=== PATIENT | female | born 1950 | race Caucasian/White ===

== ENCOUNTER 2019-01-10 19:40 | Emergency (ER) | payer OTHER ==
[~2019-01-10] VITALS: Ht 154.9 cm; Wt 50.9 kg
[2019-01-10 19:48] VITALS: Ht 154.9 cm; Wt 50.9 kg
--- NOTE | 2019-01-10 22:22 | ERD ---
ER Documentation Chief Complaint Chief Complaint BIB RA90 for hypoglycemia HPI 68-year-old female brought in by ambulance after she was noted to be hypoglycemic in the field with a blood sugar in the 20s. Patient states that her insulin was recently changed a few weeks ago. She was told to use long- acting insulin in the morning and another type of insulin which she does not know the name of, in the afternoon and in the evening. However she has only been using it in the afternoon as she feels that her blood sugar goes too low. Today she injected her insulin without checking her blood sugar as she was not at home. She also felt hungry but did not eat. Currently she feels much better after she was given a dose of D50 in the field. She was also fed here by the nurses. She denies any other symptoms. ROS All systems reviewed and are negative except as per history of present illness. Allergies Allergies: Coded Allergies: No Known Allergy (Unverified , 01/10/19) PMhx/Soc Medical and Surgical Hx: pt denies Surgical Hx Anesthesia Reaction: No Hx Neurological Disorder: No Hx Respiratory Disorders: No Hx Cardiac Disorders: No Hx Psychiatric Problems: No Hx Miscellaneous Medical Probl: Yes (DM) Hx Alcohol Use: No Hx Substance Use: No Hx Tobacco Use: No Smoking Status: Never smoker FmHx Family History: No coronary disease Physical Exam Vitals Vital Signs Date Temp Pulse Resp B/P (MAP) Pulse Ox O2 O2 Flow FiO2 Time Delivery Rate 01/10/19 69 18 159/70 99 Room Air 22:31 (99) 01/10/19 97.6 104 18 152/97 100 19:48 (115) Physical Exam Const: No acute distress Head: Atraumatic Eyes: Normal Conjunctiva, PERRLA, EOMI ENT: Normal External Ears, Nose and Mouth. Neck: Full range of motion. No meningismus. Resp: Clear to auscultation bilaterally Cardio: Regular rate and rhythm, no murmurs Abd: Soft, non tender, non distended. Normal bowel sounds Skin: No petechiae or rashes Back: No midline or flank tenderness Ext: No cyanosis, or edema Neur: Awake and alert, oriented x3, no facial asymmetry, moving all extremities spontaneously. Normal speech. Psych: Normal Mood and Affect Result Diagram: 01/10/19195101/10/191951 Results 24 hrs Laboratory Tests Test 01/10/19 19:47 01/10/19 19:52 01/10/19 21:24 01/10/19 22:09 Bedside Glucose 200 mg/dL 112 mg/dL 118 mg/dL White Blood Count 9.8 10^3/ul Red Blood Count 3.61 10^6/ul Hemoglobin 10.7 g/dl Hematocrit 33.7 % Mean Corpuscular 93.4 fl Volume Mean Corpuscular 29.6 pg Hemoglobin Mean Corpuscular 31.8 g/dl Hemoglobin Concent Red Cell Distribution 11.8 % Width Platelet Count 316 10^3/UL Mean Platelet Volume 10.2 fl Immature Granulocytes 0.400 % % Neutrophils % 68.1 % Lymphocytes % 21.6 % Monocytes % 7.1 % Eosinophils % 1.9 % Basophils % 0.9 % Nucleated Red Blood 0.0 /100WBC Cells % Immature Granulocytes 0.040 10^3/ul # Neutrophils # 6.7 10^3/ul Lymphocytes # 2.1 10^3/ul Monocytes # 0.7 10^3/ul Eosinophils # 0.2 10^3/ul Basophils # 0.1 10^3/ul Nucleated Red Blood 0.0 10^3/ul Cells # Sodium Level 138 mmol/L Potassium Level 4.3 mmol/L Chloride Level 100 mmol/L Carbon Dioxide Level 24 mmol/L Anion Gap 14 Blood Urea Nitrogen 27 mg/dl Creatinine 1.53 mg/dl Est Glomerular Filtrat 34 mL/min Rate mL/min Glucose Level 152 mg/dl Calcium Level 9.7 mg/dl Procedures/MDM EMERGENT LABS AND DIAGNOSTIC STUDIES: Lab Results above were reviewed and interpreted by me. CBC: Mild anemia, no evidence of infection CMP: Elevated BUN and creatinine, possibly chronic versus secondary to dehydration. No evidence of clinically significant electrolyte abnormality, acidosis, hypoglycemia Initial Nursing notes reviewed. Previous Medical Records requested via the Electronic Health Record. EMERGENCY DEPARTMENT COURSE / MEDICAL DECISION MAKING: Patient is presenting after having a hypoglycemic episode, now with high blood sugar after she was given D50 in the field. Vitals are unremarkable upon arrival. She was observed in the ER for several hours and given a meal. Her blood sugar remained stable. I explained to the patient the importance of eating when she uses her insulin and also knowing her blood sugar when she is injecting her insulin. Recommended follow-up with her primary care physician in 2 days to discuss her insulin dosing if she feels that her blood sugars going too low with her current insulin dose. Patient feels comfortable with this discharge plan and agrees to follow-up. Return precautions given. Advised not to use any insulin tonight. Patient's blood pressure was elevated (>120/80) but appears stable without evidence of hypertensive emergency or urgency. The patient was counseled about the risks of hypertension and urged to pursue outpatient monitoring and therapy within a week with their primary care physician. Departure Diagnosis: Primary Impression: Hypoglycemia Condition: Stable Patient Instructions: Hypoglycemia (Low Blood Sugar) Referrals: DOCTOR,NOT ON STAFF (PCP) Additional Instructions: Dylan daria gabby con quintero mdico de atencin primaria dentro de los siguientes 2 a 3 ji. Si comienza a sentirse confundido, sudoroso o dbil, llame al 911 e intente comer algo anne. CLEO LIZ MD Jan 10, 2019 22:22
[2019-01-10 22:31] VITALS: BP 159/70; PULSE 69; RESP 18
== END 2019-01-10 22:36 | disposition home or self-care (01) ==
LOC: E/R 19:40
DX: E11.649 Type 2 diabetes mellitus with hypoglycemia without coma (principal); Z79.4 Long term (current) use of insulin
CPT/HCPCS: 36415; 80048; 82962; 85025; 99283